=== PATIENT | female | born 1940 | race Hispanic/Latino ===

== ENCOUNTER 2017-01-06 14:11 | Inpatient (IN) | payer MEDICARE ==
[2017-01-06] MEDS ORDERED: CARDIZEM IV ONE (14:36)
--- NOTE | 2017-01-06 14:45 | Emergency Department Report ---
HPI - General Chief Complaint: Arrhythmia/Palpitations Time Seen by Provider: 01/06/17 14:35 - HPI HPI: This is a 76-year-old female presents to the emergency department by EMS from her PCP and cardiology office. The patient went to see her PCP, Dr. Rodney, for a preop clearance for upcoming cataract surgery. While she was there she had abnormal vitals and irregular rhythm and was told to go to see the assistant winemaker next door, Dr. Campos. While there the patient was found to be in atrial fibrillation with RVR and was sent by EMS to [facility] for further evaluation. The patient allegedly has a previous history of this one time in the past that was fixed with a ablation. She denies any chest pain, shortness of breath, nausea, vomiting or fever. She takes Eliquis and says she is compliant with this medication. ED Past Medical Hx - Past Medical History Previous Medical History?: Yes Hx Hypertension: Yes Hx Diabetes: Yes Hx Arthritis: Yes - Surgical History Past Surgical History?: Yes Hx Cholecystectomy: Yes Hx Appendectomy: Yes - Social History Smoking Status: Never Smoker Substance Use Type: None - Medications Home Medications: Home Medications Medication Instructions Recorded Confirmed Last Taken Type Metformin HCl [Glucophage] 1,000 mg PO BID 01/06/17 01/06/17 12/30/16 History Simvastatin [Zocor TAB] 20 mg PO QHS 01/06/17 01/06/17 12/30/16 History Warfarin Sodium [Coumadin] 3 mg PO QDAY 01/06/17 01/06/17 12/30/16 History glipiZIDE XL [Glucotrol Xl] 10 mg PO QAM 01/06/17 01/06/17 12/30/16 History ED Review of Systems ROS: Stated complaint: A FIB Other details as noted in HPI Comment: All other systems reviewed and negative Constitutional: denies: chills, fever Eyes: denies: eye pain, eye discharge, vision change ENT: denies: ear pain, throat pain Respiratory: denies: cough, shortness of breath, wheezing Cardiovascular: denies: chest pain, edema, syncope Gastrointestinal: denies: abdominal pain, nausea, diarrhea Genitourinary: denies: urgency, dysuria, discharge Musculoskeletal: denies: back pain, joint swelling, arthralgia Skin: denies: rash, lesions Neurological: denies: headache, weakness, paresthesias Physical Exam - Physical Exam Vital Signs: Vital Signs 01/06/17 14:20 Pulse Rate 160 H Respiratory 16 Rate O2 Sat by Pulse 97 Oximetry Physical Exam: GENERAL: The patient is well-developed well-nourished. HENT: Normocephalic. Atraumatic. Patient has moist mucous membranes. EYES: Extraocular motions are intact. Pupils equal, round and reactive to light. NECK: Supple. Trachea is midline. CHEST/LUNGS: Clear to auscultation. There is no respiratory distress noted. HEART/CARDIOVASCULAR: Irregularly irregular with tachycardia. No obvious murmurs. ABDOMEN: Abdomen is soft, nontender. Patient has normal bowel sounds. There is no abdominal distention. SKIN: Skin is warm and dry. NEURO: The patient is awake, alert, and oriented. The patient is cooperative. The patient has no focal neurologic deficits. The patient has normal speech. MUSCULOSKELETAL: There is no tenderness or deformity. There is no limitation range of motion. There is no evidence of acute injury. ED Course Vital Signs 01/06/17 14:20 Pulse Rate 160 H Respiratory 16 Rate O2 Sat by Pulse 97 Oximetry ED Medical Decision Making - Lab Data Result diagrams: 01/06/17 14:25 01/06/17 14:25 - EKG Data -: EKG Interpreted by Me - EKG Data Interpretation: other (atrial fibrillation with RVR, rate of 146 bpm, borderline left axis deviation, nonspecific ST-T waves) - Radiology Data Radiology results: image reviewed interpreted by me: Chest x-ray does not show any acute process. There is no obvious pneumonia, pleural effusions or pneumothorax. - Medical Decision Making 76-year-old female presents to the emergency department from PCP and cardiology and atrial fibrillation with RVR. Started on Cardizem drip which did help with rate control but the patient did not convert. Will be admitted to the ICU. Patient also has hyperglycemia but does not appear to be in DKA as there is no elevation in her anion gap. Given IV fluid resuscitation and IV insulin. She was seen in the emergency department by cardiology. - Differential Diagnosis atrial fibrillation with RVR, MT, DKA, HHN K Critical Care Time: Yes Critical care time in (mins) excluding proc time.: 31 Critical care attestation.: If time is entered above; I have spent that time in minutes in the direct care of this critically ill patient, excluding procedure time. Critical care time was spent on this patient and doing her initial evaluation, reevaluation, ordering and interpretation of labs, ordering and interpretation of imaging, medication administration and titration of Cardizem drip, discussion with the assistant winemaker and admitting hospitalist. Critical Care Time: 31 mins ED Disposition Clinical Impression: Atrial fibrillation with RVR, Hyperglycemia, Hyponatremia Uncontrolled diabetes mellitus Qualifiers: Diabetes mellitus type: type 1 Diabetes mellitus complication status: with hyperglycemia Qualified Code(s): E10.65 - Type 1 diabetes mellitus with hyperglycemia Disposition: DC-09 OP ADMIT IP TO THIS HOSP Is pt being admited?: Yes Condition: Fair Instructions: Diabetes Mellitus Type 2 in Adults (ED) Time of Disposition: 15:31
[2017-01-06 14:53] LABS: Eosinophils % (Auto) 0.6 % (0.0-4.3); Hematocrit 42.8 % (30.3-42.9); Hemoglobin 14.1 gm/dl (10.1-14.3); Mean Corpuscular HGB Conc 33 % (30-34); Mean Corpuscular Hemoglobin 29 pg (28-32); Mean Corpuscular Volume 88 fl (79-97); Platelet Count 213 K/mm3 (140-440); Red Blood Count 4.89 M/mm3 (3.65-5.03); Red Cell Distribution Width 14.8 % (13.2-15.2); White Blood Count 7.4 K/mm3 (4.5-11.0)
--- NOTE | 2017-01-06 14:55 | Admit Criteria Form ---
Admission Criteria Documentation: CARDIOLOGY GRG Clinical Indications for Admission to Inpatient Care ([place]/check or initial the applicable condition/criteria) Hospital admission is needed for appropriate care of the patient because of ANY ONE of the following: [ ] I. Hemodynamic instability as indicated by ALL of the following (1)(2)(3) (4)(5)(6)(7)(8)(9)(10) [ ]a) Vital sign abnormality not readily corrected by appropriate treatment with 12-24 hours for ANY ONE: [ ]i) Hypotension that persists despite appropriate treatment (eg, volume repletion) [ ]ii) Tachycardiathat persists despite appropriate tx ( e.g., analgesia, fluids, sedation as indicated [ ]iii) Orthostatic vital sign changes that persists despite appropriate treatment (eg, volume repletion) [ ]b) Vital sign abnormailty that is severe indicated by ANY ONE of the following: [ ]i) Inadequate perfusion indicated by ANY ONE of the following: [ ] 1) Lactic acidosis (> 2 mmol/L) [ ] 2) New abnormal capillary refill (> 3 seconds) [ ] 3) Reduced urine output [ ] 4) New altered mental status [ ] 5) Myocardial Ischemia [ ] 6) Other metabolic acidosis (arterial pH <7.35 ) not otherwise explained. [ ]ii) Mean arterial pressure[A] less than 60 mm Hg [ ]iii) Mean arterial pressure[A] less than 70 mm Hg after 30 minutes of appropriate treatment (eg, fluid resuscitation) [ ]iv) Sustained heart rate greater than 120 beats per minute in adult or child 6 years or older[B] [ ]v) IV inotropic or vasopressor medication required to maintain adequate blood pressure or perfusion [ ] II. Severe heart failure as indicated by ANY ONE of the following(17)(18) [ ]a) Respiratory distress [ ]b) Hypotension [ ]c) Debilitating anasarca refractory to therapy (eg, tissue breakdown with infection)[C](19) [ ]d) Cardiac arrhythmias of immediate concern [ ]e) Myocardial ischemia [ ] III. Cardiac arrhythmias or findings of immediate concern indicated by ANY ONE of the following (21)(22): [ ] a) Heart rhythms that are inherently dangerous or unstable indicated by ANY ONE of the following (23)(24)(25): [ ] i) Resuscitated ventricular fibrillation or cardiac arrest [ ] ii) Ventricular escape rhythm [ ] iii) Sustained ventricular tachycardia (30 seconds or more of ventricular rhythm at greater than 100 beats per minute) [ ] iv) Nonsustained ventricular tachycardia and ANY ONE of the following: [ ] 1) Suspected cardiac ischemia as cause or consequence of ventricular tachycardia [ ] 2) Acute myocarditis [ ] b) Unstable cardiac conduction defects indicated by ANY ONE of the following(25)(26)(27) [ ] i) Type II second-degree atrioventricular block [ ]ii) Third-degree atrioventricular block [ ]iii) New-onset left bundle branch block with suspected myocardial ischemia [ ]c) Any heart rhythm and ANY ONE of the following (23)(24)(28)(29) (30) [ ] i) Continuous long-term ECG monitoring needed (e.g., initiation of drug requiring monitoring for more than 24 hours) [ ] ii) Patient has automatic implanted cardioverter defibrillator that is repeatedly firing, malfunctioning, or in need of immediate adjustment of settings beyond the scope of ambulatory or observation care [ ]d) Heart rhythms of concern due to ANY ONE of the following: [ ] i) Hypotension [ ] ii) Respiratory distress [ ] iii) Association with other significant symptoms (e.g., bradycardia with syncope or ongoing dizziness, supraventricular tachycardia with chest pain (28)(29)(31) [ ] IV. Monitoring for cardiac contusion beyond the scope of observation care needed [A](32)(33)(34) [ ] V. Surgical or device complication (e.g., valve replacement complication , ICD disfunction or pacemaker dysfunction) (49)(50)(51)(52)(53)(54) [ ] . Inpatient palliative care needed. [F](51)(52) Also use Inpatient Palliative Care Criteria [ ] VII. Nonbacterial thrombotic (marantic) endocarditis(43)(44)(55)(56)(57) [X ] VIII. Cardiology condition, symptom, or finding for which emergency and observation care has failed or are not considered appropriate. [ ] IX. Acute valvular disease requiring inpatient as indicated by ANY ONE of the following (40)(41) [ ]a) Acute valvular regurgitation (42) [ ]b) Noninfectious valvulitis (43)(44) [ ]c) Obstructive valve thrombosis (45)(46) [ ]d) Paravalvular leak(47)(48) [ ]e) Other significant valvular disorder remaining after emergency or observation level of care (as appropriate) [ ]X. Pericardial disease requiring inpatient treatment as indicated by ANY ONE of the following (35)(36)(37)(38) [ ]a) Suspected tamponade [ ]b) Hemopericardium [ ]c) Other significant pericardial disorder remaining after emergency or observation level of care (as appropriate)(39) [ ] XI. Cardiac ischemia beyond scope of emergency and observation care. [ ] XII. Cyanotic heart disease requiring inpatient care as indicated by 1 or more of the following(58)(59)(60): [ ]a) Acute onset of hypoxemia [ ]b) Exacerbation [ ] XIII. Hypertension requiring inpatient treatment as indicated by ANYONE of the following(11)(12)(13)(14): [ ]a) Severe hypertension (SBP greater than 180 mm Hg or DBP greater than 110 mm Hg, or greater than the 95th percentile for age, gender, and height in pediatric patients) that cannot be controlled (eg, to SBP less than 160 mm Hg and DBP less than 100 mm Hg) by emergency department or observation care treatment(15) [ ]b) Acute end organ damage secondary to hypertension (SBP greater than 140 mm Hg or DBP greater than 90 mm Hg) as indicated by ANYONE of the following: [ ] i) Hypertensive encephalopathy (eg, Altered mental status)(16) [ ] ii) Cerebral infarction [ ] iii) Intracranial hemorrhage [ ] iv) Myocardial ischemia or infarction [ ] v) Heart failure (eg, pulmonary edema) [ ] vi) Aortic dissection [ ] vii) Increased creatinine (new) with reduction of more than 50% in estimated glomerular filtration rate from baseline [ ] viii) Papilledema [ ] ix) Retinal hemorrhage [ ] x) Microangiopathic hemolytic anemia [ ] xi) Seizure [ ] xii) Other significant finding secondary to hypertension [ ] XIV. Complications of transplanted heart indicated by ANY ONE of the following(61): [ ]a) Acute graft rejection requiring inpatient management (eg, intravenous imunosuppression)(62)(63) [ ]b) Acute graft heart failure indicated by ANY ONE of the following(64): [ ] i) Hemodynamic instability [ ] ii) Cardiac arrhythmias of immediate concern [ ] iii) Pulmonary edema that is very severe (eg, mechanical ventilation needed, imminent or likely, need for 100% oxygen to keep oxygen saturation above 90%) [ ] iv) Pulmonary edema that is persistent as indicated by ALL of the following: [ ] 1) New need for oxygen therapy to keep oxygen saturation above 90 % (or increased FiO2 need from baseline) [ ] 2) Has not improved sufficiently with emergency department or observation care IV diuretics or other heart failure treatments[E]. [ ] iv) Altered mental status that is severe or persistent [ ] iv) Increased creatinine (new on laboratory test) with reduction of more than 50% in estimated glomerular filtration rate from baseline [ ] iv) Progressively (ongoing) rising creatinine (known from past laboratory test) with reduction of more than 25% in estimated glomerular filtration rate from baseline [ ] iv) Acute renal failure [ ] iv) Acute peripheral ischemia (eg, examination shows pulseless, cool, mottled, or cyanotic extremity) [ ] iv) Pulmonary artery catheter monitoring needed [ ] iv) Other sign or symptom of heart failure requiring inpatient treatment (ie, too severe or not responsive to outpatient and observation care treatment) [ ]c) Infection requiring inpatient management (eg, Hemodynamic instability, need for intravenous antimicrobial treatment)(66)(67)(68)(69)(70) [ ]d) Cardiac allograft vasculopathy requiring inpatient management (eg evidence of cardiacischemia)(71) [ ]e) Other complication of transplanted heart (eg, stroke, severe pulmonary hypertension, severe valvular dysfunction) requiring inpatient management(72) The original [employer] content created by [employer] has been revised. The portions of the content which have been revised are identified through the use of italic text or in bold, and [facility] has neither reviewed nor approved the modified material. All other unmodified content is copyright [facility]. Please see references footnoted in the original [facility] edition 2017 Admission Criteria Met: Yes
--- NOTE | 2017-01-06 14:55 | XRay Report ---
PORTABLE CHEST INDICATION: Chest pain. COMPARISON: None similar at this institution. FINDINGS: Portable, frontal chest radiograph demonstrates slight limited inspiration and mild exaggerated cardiomediastinal silhouette/possible cardiomegaly. Slight nonspecific left lateral costophrenic angle haziness. Otherwise clear lungs. EKG leads. Intact bones. CONCLUSION: No definite significant chest process, as described. Please correlate. Thank you for the opportunity to participate in this patient's care.
[2017-01-06] MEDS: CARDIZEM/D5W 100MG/100ML 100 MG/100 ML BAG IV ONE (15:00)
[2017-01-06 15:02] LABS: INR 0.95 (0.87-1.13); Partial Thromboplastin Time 28.4 Sec. (24.2-36.6)
[2017-01-06 15:10] LABS: Anion Gap 23 mmol/L; BUN/Creatinine Ratio 21.66; Blood Urea Nitrogen 13 mg/dL (7-17); Calcium 9.3 mg/dL (8.4-10.2); Carbon Dioxide 19 mmol/L (22-30); Chloride 94.4 mmol/L (98-107); Glucose 450 mg/dL (65-100); Potassium 4.1 mmol/L (3.6-5.0); Sodium 132 mmol/L (137-145)
--- NOTE | 2017-01-06 15:17 | Consultation ---
History of Present Illness Consult date: 01/06/17 Requesting physician: HOOD [place] Consult reason: atrial fibrillation History of present illness: The pt is a 76-year-old white female with a past medical history significant for chronic back issues, atrial flutter s/p ablation 10 years ago, DM, HTN, and HLP. She is followed in our office by Dr. Campos. She was last seen 18 months ago in our office and she has since stopped her beta lindsey and coumadin on her own. She presented to her PCP for preop for eye surgery and was found to be in atrial flutter with variable ventricular response and was sent to the underwriting consultant's office. In our office, she was found to be in AFib with HR 150s. She was referred to [facility] ED for further eval/management. On evaluation, she denies any chest pain, palpitations, n/v, diaphoresis, dizziness or syncope. She does admit to some RESTREPO, which has been present for several months. Echo done 02/2016 showed EF 55-60%, mild to moderate LVH, mild MR, trace TR, RVSP 24mmHg. PET MPI done 07/2014 was negative for significant ischemia, coronary flow reserve globally diminished at 1.5 suggestive of endothelial dysfunction or nonobstructive CAD. Past History Past Medical History: atrial fib, diabetes, hypertension, hyperlipidemia Past Surgical History: appendectomy, cholecystectomy, Other (ablation; carpel tunnel surgery) Social history: no significant social history. denies: smoking, alcohol abuse, prescription drug abuse Medications and Allergies Allergies Allergy/AdvReac Type Severity Reaction Status Date / Time No Known Allergies Allergy Verified 01/06/17 14:16 Home Medications Medication Instructions Recorded Confirmed Last Taken Type Metformin HCl [Glucophage] 1,000 mg PO BID 01/06/17 01/06/17 12/30/16 History Simvastatin [Zocor TAB] 20 mg PO QHS 01/06/17 01/06/17 12/30/16 History Warfarin Sodium [Coumadin] 3 mg PO QDAY 01/06/17 01/06/17 12/30/16 History glipiZIDE XL [Glucotrol Xl] 10 mg PO QAM 01/06/17 01/06/17 12/30/16 History Active Meds: Active Medications Diltiazem HCl (Cardizem/D5w 100mg/100ml) 100 mg in 100 mls @ 5 mls/hr IV TITR ONE; 5 MG/HR PRN Reason: Protocol Stop: 01/07/17 10:35 Last Admin: 01/06/17 15:00 Dose: 5 mg/hr, 5 mls/hr Review of Systems Constitutional: no weight loss, no weight gain, no fever, no chills, no sweats Ears, nose, mouth and throat: no ear pain, no nose pain, no sinus pressure, no sinus pain Cardiovascular: dyspnea on exertion, no chest pain, no orthopnea, no palpitations, no rapid/irregular heart beat, no edema, no syncope, no lightheadedness, no shortness of breath, no paroxysmal nocturnal dyspnea, no high blood pressure, no leg edema, no decreased exercise tolerance Respiratory: dyspnea on exertion, no cough, no shortness of breath, no congestion, no wheezing, no pain on inspiration Gastrointestinal: no abdominal pain, no nausea, no vomiting, no diarrhea, no constipation, no change in bowel habits Genitourinary Female: no dyspareunia, no pelvic pain, no flank pain, no dysuria , no urinary frequency, no urgency Musculoskeletal: no neck stiffness, no neck pain, no shooting arm pain, no arm numbness/tingling, no low back pain, no shooting leg pain, no leg numbness/ tingling, no redness of joints Integumentary: no rash, no pruritis, no redness, no sores, no wounds Neurological: no paralysis, no weakness, no parathesias, no numbness, no tingling, no seizures, no syncope Psychiatric: no anxiety Endocrine: no cold intolerance, no heat intolerance Hematologic/Lymphatic: no easy bruising, no easy bleeding, no lymphadenopathy Allergic/Immunologic: no urticaria, no wheezing, no persistent infections Physical Examination Vital Signs Pulse Resp Pulse Ox 160 H 16 97 01/06/17 14:20 01/06/17 14:20 01/06/17 14:20 General appearance: no acute distress HEENT: Positive: PERRL, Normocephaly, Mucus Membranes Moist Neck: Positive: neck supple, trachea midline Cardiac: Positive: irregularly irregular, S1/S2, Tachycardia Lungs: Positive: Normal Exam, clear to auscultation, Normal Breath Sounds Neuro: Positive: Grossly Intact, Cranial Nerve 2-12 Intact Abdomen: Positive: Unremarkable, Soft, Active Bowel Sounds. Negative: Tender Skin: Positive: Clear. Negative: Rash, Wound Musculoskeletal: No Fluid Collection, No Pain, Normal Range of Motion Extremities: Absent: edema Results 01/06/17 14:25 Coagulation 01/06/17 Range/Units 14:25 PT 13.1 (12.2-14.9) Sec. INR 0.95 (0.87-1.13) APTT 28.4 (24.2-36.6) Sec. CBC 01/06/17 Range/Units 14:25 WBC 7.4 (4.5-11.0) K/mm3 RBC 4.89 (3.65-5.03) M/mm3 Hgb 14.1 (10.1-14.3) gm/dl Hct 42.8 (30.3-42.9) % Plt Count 213 (140-440) K/mm3 Lymph # 1.7 (1.2-5.4) K/mm3 Gibson # 0.5 (0.0-0.8) K/mm3 Eos # 0.0 (0.0-0.4) K/mm3 Baso # 0.1 (0.0-0.1) K/mm3 - Imaging and Cardiology Echo: report reviewed (02/2016 showed EF 55-60%, mild to moderate LVH, mild MR, trace TR, RVSP 24mmHg.) EKG: image reviewed EKG interpretations - Telemetry EKG Rhythm: Atrial Fibrillation - EKG Supraventricular dysrhythmia: atrial fibrillation (RVR) Assessment and Plan Assessment: Atrial fibrillation with RVR - s/p ablation 10 years ago HTN HLP DM Plan: Continue cardizem gtt. Wean off for resting HR <100bpm. Initiate lopressor, 25mg PO TID. Titrate as tolerated. No indication for repeat echo at this time given recent echo 02/2016. Obtain serum Mg. Obtain thyroid panel in AM. Initiate eliquis, 5mg PO BID. Assessment and plan reviewed with pt at bedside. The patient has been seen in conjunction with Dr. SHEILA Davila who agrees with the assessment and plan of care.
[2017-01-06] MEDS ORDERED: LOPRESSOR PO SCH (15:21)
--- NOTE | 2017-01-06 15:35 | History and Physical Report ---
History of Present Illness Chief complaint: My heart is beating fast- thats what the doctor told me. History of present illness: 76 YO Female with Atrial flutter, DM, HTN, HLD, Metabolic Syndrome presents to ED for evaluation. Pt was seen and evaluated in Dr. Campos's office and was found to have Atrial Flutter with RVR and was sent to ED for evaluation. Pt denies fever, chills, CP, Palpitations, NVD, syncope, dizziness, weakness, NVD, productive cough, or known ill contacts. Past History Past Medical History: atrial fib, diabetes, hypertension, hyperlipidemia Past Surgical History: appendectomy, cholecystectomy, Other (ablation; carpel tunnel surgery) Social history: no significant social history. denies: smoking, alcohol abuse, prescription drug abuse Medications and Allergies Allergies Allergy/AdvReac Type Severity Reaction Status Date / Time No Known Allergies Allergy Verified 01/06/17 14:16 Home Medications Medication Instructions Recorded Confirmed Last Taken Type Metformin HCl [Glucophage] 1,000 mg PO BID 01/06/17 01/06/17 12/30/16 History Simvastatin [Zocor TAB] 20 mg PO QHS 01/06/17 01/06/17 12/30/16 History Warfarin Sodium [Coumadin] 3 mg PO QDAY 01/06/17 01/06/17 12/30/16 History glipiZIDE XL [Glucotrol Xl] 10 mg PO QAM 01/06/17 01/06/17 12/30/16 History Active Meds: Active Medications Apixaban (Eliquis) 5 mg PO Q12HR ABHIJIT PRN Reason: Protocol Diltiazem HCl (Cardizem/D5w 100mg/100ml) 100 mg in 100 mls @ 5 mls/hr IV TITR ONE; 5 MG/HR PRN Reason: Protocol Stop: 01/07/17 10:35 Last Titration: 01/06/17 15:17 Dose: 7 mg/hr, 7 mls/hr Metoprolol Tartrate (Lopressor) 25 mg PO TID ABHIJIT Review of Systems Constitutional: no weight loss, no weight gain Ears, nose, mouth and throat: no ear pain, no nose pain, no sinus pain Cardiovascular: no chest pain, no orthopnea, no palpitations Respiratory: cough with sputum, no cough Gastrointestinal: no abdominal pain, no nausea, no diarrhea Genitourinary Female: no dysuria, no urinary frequency, no urgency Rectal: no pain, no bleeding Musculoskeletal: no neck pain, no arm numbness/tingling, no shooting leg pain Integumentary: no rash, no wounds Neurological: no head injury, no parathesias, no numbness Psychiatric: no anxiety, no hypersomnia Endocrine: no cold intolerance, no polyphagia, no polydipsia Hematologic/Lymphatic: no easy bruising, no easy bleeding Allergic/Immunologic: allergic rhinitis, no persistent infections Exam - Constitutional Vitals: Temp Pulse Resp BP Pulse Ox 114 H 18 119/66 100 01/06/17 15:16 01/06/17 15:16 01/06/17 15:16 01/06/17 15:16 General appearance: Present: mild distress - EENT Eyes: Present: PERRL ENT: hearing intact, clear oral mucosa, poor dentition - Neck Neck: Present: supple, normal ROM - Respiratory Respiratory effort: normal Respiratory: bilateral: CTA - Cardiovascular Rhythm: irregularly irregular Heart Sounds: Absent: rub, click - Extremities Extremities: pulses symmetrical, No edema Peripheral Pulses: within normal limits - Abdominal General gastrointestinal: Present: soft, non-tender, non-distended, normal bowel sounds Female genitourinary: Present: normal - Integumentary Integumentary: Present: clear, warm, dry - Musculoskeletal Musculoskeletal: gait normal, strength equal bilaterally - Psychiatric Psychiatric: appropriate mood/affect, intact judgment & insight - Neurologic Neurologic: CNII-XII intact, moves all extremities Results - Labs CBC & Chem 7: 01/06/17 14:25 01/06/17 14:25 Labs: Abnormal lab results 01/06/17 Range/Units 14:25 Sodium 132 L (137-145) mmol/L Chloride 94.4 L (98-107) mmol/L Carbon Dioxide 19 L (22-30) mmol/L Creatinine 0.6 L (0.7-1.2) mg/dL Glucose 450 H (65-100) mg/dL Assessment and Plan - Patient Problems (1) Atrial fibrillation with RVR Current Visit: Yes Status: Acute Plan to address problem: Cardiology consulted in ED, initiated cardizem drip, therapeutic anticoagulation , rate control,, supportive care. The high probability of a clinically significant, sudden or life threatening deterioration of the [cardiac, pulmonary,renal] system(s) required my full and direct attention, intervention and personal management. The aggregate critical care time was [65] minutes. This time is in addition to time spent performing reported procedures but includes the following: [x] Data Review and interpretation [x] Patient assessment and monitoring of vital signs [x] Documentation [x] Medication orders and management (2) Hyponatremia Current Visit: Yes Status: Acute Plan to address problem: IVR resuscitation, supportive care (3) Uncontrolled diabetes mellitus Current Visit: Yes Status: Acute Qualifiers: Diabetes mellitus type: type 1 Diabetes mellitus complication status: with hyperglycemia Diabetes mellitus complication detail: D Diabetic retinopathy severity: D Proliferative retinopathy type: P Diabetes mellitus macular edema: D Diabetes mellitus mosaic tiler insulin use: D Laterality: L Chronic kidney disease stage: C Qualified Code(s): E10.65 - Type 1 diabetes mellitus with hyperglycemia Plan to address problem: ADA diet, insulin, accu check (4) DVT prophylaxis Current Visit: Yes Status: Acute
[2017-01-06] MEDS ORDERED: MILK OF MAGNESIA PO PRN (15:47)
[2017-01-06] MEDS ORDERED: DULCOLAX PR PRN (15:47)
[2017-01-06] MEDS ORDERED: ALUM-MAG HYDROX-SIMETH 200-200-20MG/5ML PO PRN (15:47)
[2017-01-06] MEDS ORDERED: D50W (25GM) Syringe IV PRN (15:54)
[2017-01-06] MEDS ORDERED: LOPRESSOR ONE ×2 (15:56→23:07)
[2017-01-06] MEDS: LOPRESSOR PO SCH ×2 (16:03→23:17)
[2017-01-06] MEDS ORDERED: NOVOLOG SUB-Q ONE (19:02)
[2017-01-06] MEDS: NOVOLOG SUB-Q SCH (19:06)
[2017-01-06] MEDS ORDERED: ZOCOR ONE (23:07)
[2017-01-06] MEDS ORDERED: CARDIZEM/D5W 100MG/100ML 100 MG/100 ML BAG IV ONE (23:19)
[2017-01-06] MEDS: ZOCOR PO SCH (23:25)
[2017-01-06] MEDS: ELIQUIS PO SCH (23:25)
[2017-01-06] MEDS ORDERED: NACL 0.9% 1000 ML 1,000 ML ONE (23:49)
[2017-01-07] MEDS: CARDIZEM/D5W 100MG/100ML 100 MG/100 ML BAG IV ONE
[2017-01-07] MEDS: NOVOLOG SUB-Q SCH ×4 (00:58→18:46)
[2017-01-07] MEDS: LOPRESSOR PO SCH ×3 (09:00→20:34)
[2017-01-07] MEDS ORDERED: MAGNESIUM SULFATE 1 GM in NACL 0.9% 50 ML IV ONE (09:15)
[2017-01-07] MEDS ORDERED: NON-FORMULARY (Warfarin Sodium [Coumadin] 3 MG) PO SCH (10:00)
[2017-01-07] MEDS: ELIQUIS PO SCH ×2 (10:19→22:09)
--- NOTE | 2017-01-07 12:11 | Progress Note ---
Assessment and Plan Atrial fibrillation with RVR - s/p ablation 10 years ago. Patient has been treated with intravenous Cardizem and currently the Cardizem drip is off. She is on metoprolol converted to sinus rhythm. Patient is on oral anticoagulation. HTN HLP DM Plan: Plan is to transfer the patient to telemetry continue monitoring and increase her activity. If she remains stable patient can be discharged in a.m. - Patient Problems (1) Atrial fibrillation with RVR Current Visit: Yes Status: Acute (2) Hypertension Current Visit: Yes Status: Acute Qualifiers: Hypertension type: H Subjective Date of service: 01/07/17 Interval history: Patient is feeling well today. No chest pain difficulty in breathing or palpitations. Heart rate has improved and now she is in sinus rhythm. Objective Vital Signs Temp Pulse Pulse Pulse Resp BP BP 01/07/17 12:00 97.6 F 01/07/17 11:40 65 14 127/46 01/07/17 11:20 67 11 L 126/50 01/07/17 11:00 68 13 126/50 01/07/17 10:40 65 14 122/52 01/07/17 10:20 69 12 119/49 01/07/17 10:00 73 73 19 110/64 01/07/17 09:40 68 15 101/50 01/07/17 09:20 80 13 101/50 01/07/17 09:00 68 13 101/50 01/07/17 08:40 76 16 112/41 01/07/17 08:20 65 13 112/41 01/07/17 08:19 97.5 F L 01/07/17 08:00 67 67 14 112/41 01/07/17 07:40 68 15 102/39 01/07/17 07:20 68 14 91/31 01/07/17 07:00 69 14 91/31 01/07/17 06:40 67 13 101/40 01/07/17 06:20 63 14 101/40 01/07/17 06:00 65 64 13 101/40 01/07/17 05:40 64 15 101/33 01/07/17 05:20 64 13 101/33 01/07/17 05:00 67 13 101/33 01/07/17 04:40 66 14 111/35 01/07/17 04:20 67 14 111/35 01/07/17 04:00 97.8 F 65 15 111/35 01/07/17 03:40 64 13 109/64 01/07/17 03:20 67 15 109/64 01/07/17 03:00 64 16 109/64 01/07/17 02:40 64 15 114/48 01/07/17 02:27 69 16 01/07/17 02:00 90 74 18 104/66 01/07/17 01:40 86 19 104/66 01/07/17 01:37 97.8 F 01/07/17 01:30 14 114/48 01/07/17 01:26 01/07/17 01:13 97.8 F 01/07/17 01:05 107 H 14 116/68 01/07/17 00:50 113 H 14 116/68 01/07/17 00:40 103 H 14 77/65 01/07/17 00:30 109 H 16 81/60 01/07/17 00:20 94 H 10 L 76/67 01/07/17 00:18 100 H 15 76/67 01/07/17 00:10 102 H 17 76/67 01/07/17 00:00 112 H 17 76/67 01/06/17 23:50 103 H 13 76/67 01/06/17 23:48 115 H 15 82/67 01/06/17 23:40 134 H 17 76/67 01/06/17 23:30 124 H 17 92/67 01/06/17 23:20 129 H 14 92/67 01/06/17 23:17 76 92/67 01/06/17 23:10 124 H 15 78/43 01/06/17 23:00 100 H 17 78/43 01/06/17 22:50 110 H 14 84/43 01/06/17 22:40 121 H 12 94/43 01/06/17 22:30 102 H 17 94/43 01/06/17 22:20 95 H 18 87/50 01/06/17 22:10 126 H 17 88/58 01/06/17 22:00 122 H 13 82/45 01/06/17 21:50 109 H 18 100/49 01/06/17 21:40 103 H 18 91/56 01/06/17 21:30 102 H 15 91/56 01/06/17 21:20 89 16 97/59 01/06/17 21:10 85 17 100/52 01/06/17 21:00 78 16 100/52 01/06/17 20:50 100 H 16 103/62 01/06/17 20:40 96 H 19 97/59 01/06/17 20:30 133 H 17 97/59 01/06/17 20:20 95 H 17 94/62 01/06/17 20:10 101 H 16 99/50 01/06/17 20:00 122 H 19 99/50 01/06/17 19:50 142 H 15 111/66 01/06/17 19:40 104 H 18 90/63 01/06/17 19:30 117 H 17 98/61 01/06/17 19:20 132 H 21 100/71 01/06/17 19:10 102 H 18 99/60 01/06/17 19:00 87 23 101/48 01/06/17 18:50 87 14 101/48 01/06/17 18:40 102 H 18 114/51 01/06/17 18:30 108 H 16 114/51 01/06/17 18:20 89 15 117/51 01/06/17 18:10 90 17 108/53 01/06/17 18:00 88 17 108/53 01/06/17 17:50 91 H 16 114/45 01/06/17 17:40 96 H 20 110/54 01/06/17 17:30 97 H 18 110/54 01/06/17 17:20 104 H 19 100/63 01/06/17 17:10 114 H 18 110/64 01/06/17 17:00 103 H 18 110/64 01/06/17 16:50 108 H 20 119/48 01/06/17 16:40 114 H 19 102/60 01/06/17 16:30 144 H 17 102/60 01/06/17 16:20 146 H 20 117/64 01/06/17 16:13 16 01/06/17 16:10 127 H 23 113/74 01/06/17 16:03 101 H 128/52 01/06/17 16:00 132 H 17 113/74 01/06/17 15:50 130 H 21 103/67 Pulse Ox 01/07/17 12:00 01/07/17 11:40 96 01/07/17 11:20 98 01/07/17 11:00 98 01/07/17 10:40 97 01/07/17 10:20 99 01/07/17 10:00 97 01/07/17 09:40 95 01/07/17 09:20 99 01/07/17 09:00 98 01/07/17 08:40 98 01/07/17 08:20 96 01/07/17 08:19 01/07/17 08:00 96 01/07/17 07:40 96 01/07/17 07:20 96 01/07/17 07:00 97 01/07/17 06:40 98 01/07/17 06:20 96 01/07/17 06:00 97 01/07/17 05:40 96 01/07/17 05:20 96 01/07/17 05:00 98 01/07/17 04:40 96 01/07/17 04:20 96 01/07/17 04:00 94 01/07/17 03:40 95 01/07/17 03:20 95 01/07/17 03:00 96 01/07/17 02:40 97 01/07/17 02:27 97 01/07/17 02:00 96 01/07/17 01:40 99 01/07/17 01:37 01/07/17 01:30 100 01/07/17 01:26 98 01/07/17 01:13 01/07/17 01:05 99 01/07/17 00:50 95 01/07/17 00:40 96 01/07/17 00:30 01/07/17 00:20 96 01/07/17 00:18 96 01/07/17 00:10 95 01/07/17 00:00 96 01/06/17 23:50 96 17 23:48 96 17 23:40 96 17 23:30 95 17 23:20 95 1817 23:17 17 23:10 96 1817 23:00 95 1817 22:50 98 17 22:40 94 17 22:30 96 17 22:20 95 01/06/17 22:10 97 01/06/17 22:00 97 01/06/17 21:50 96 01/06/17 21:40 96 01/06/17 21:30 96 01/06/17 21:20 96 01/06/17 21:10 94 01/06/17 21:00 94 01/06/17 20:50 95 01/06/17 20:40 97 01/06/17 20:30 95 01/06/17 20:20 95 01/06/17 20:10 94 01/06/17 20:00 95 01/06/17 19:50 96 01/06/17 19:40 96 01/06/17 19:30 94 01/06/17 19:20 95 01/06/17 19:10 96 01/06/17 19:00 97 01/06/17 18:50 99 01/06/17 18:40 97 01/06/17 18:30 95 01/06/17 18:20 97 01/06/17 18:10 96 01/06/17 18:00 96 01/06/17 17:50 97 01/06/17 17:40 94 01/06/17 17:30 93 01/06/17 17:20 93 01/06/17 17:10 93 01/06/17 17:00 93 01/06/17 16:50 93 01/06/17 16:40 98 01/06/17 16:30 96 01/06/17 16:20 95 01/06/17 16:13 01/06/17 16:10 97 01/06/17 16:03 01/06/17 16:00 94 01/06/17 15:50 95 - Physical Examination General: Appears Well HEENT: Positive: PERRL, Normocephaly, Mucus Membranes Moist Neck: Positive: neck supple, trachea midline Cardiac: Positive: Reg Rate and Rhythm Lungs: Positive: clear to auscultation Neuro: Positive: Grossly Intact, Cranial Nerve 2-12 Intact Abdomen: Positive: Unremarkable, Soft, Active Bowel Sounds. Negative: Tender Skin: Positive: Clear. Negative: Rash, Wound Musculoskeletal: No Fluid Collection, No Pain, Normal Range of Motion Extremities: Present: Other (no significant edema or calf tenderness.). Absent : edema - Imaging and Cardiology EKG: image reviewed Echo: report reviewed (02/2016 showed EF 55-60%, mild to moderate LVH, mild MR, trace TR, RVSP 24mmHg.)
--- NOTE | 2017-01-07 14:30 | Consultation ---
History of Present Illness Consult date: 01/07/17 Requesting physician: REJI MIRAMONTES Reason for consult: other (Atrial Fib with RVR) History of present illness: PULMONARY/CCM CONSULT NOTE (Full dictation # [id number]) Please see dictated notes for full details Past History Past Medical History: atrial fib, diabetes, hypertension, hyperlipidemia Past Surgical History: appendectomy, cholecystectomy, Other (ablation; carpel tunnel surgery) Social history: no significant social history. denies: smoking, alcohol abuse, prescription drug abuse Medications and Allergies Allergies Allergy/AdvReac Type Severity Reaction Status Date / Time No Known Allergies Allergy Verified 01/06/17 14:16 Home Medications Medication Instructions Recorded Confirmed Last Taken Type Metformin HCl [Glucophage] 1,000 mg PO BID 01/06/17 01/06/17 12/30/16 History Simvastatin [Zocor TAB] 20 mg PO QHS 01/06/17 01/06/17 12/30/16 History Warfarin Sodium [Coumadin] 3 mg PO QDAY 01/06/17 01/06/17 12/30/16 History glipiZIDE XL [Glucotrol Xl] 10 mg PO QAM 01/06/17 01/06/17 12/30/16 History Active Meds: Active Medications Al Hydrox/Mg Hydrox/Simethicone (Alum-Mag Hydrox-Simeth [id number]/5ml) 30 ml PO Q4H PRN PRN Reason: Indigestion Apixaban (Eliquis) 5 mg PO Q12HR ABHIJIT PRN Reason: Protocol Last Admin: 01/07/17 10:19 Dose: 5 mg Bisacodyl (Dulcolax) 10 mg [place] QDAY PRN PRN Reason: constipation unrelieved by MOM Dextrose (D50w (25gm)) 50 ml IV PRN PRN PRN Reason: Hypoglycemia Insulin Aspart (Novolog) 0 units SUB-Q Q6HR ABHIJIT PRN Reason: Protocol Last Admin: 01/07/17 07:20 Dose: 8 units Insulin Detemir (Levemir) 10 units SUB-Q QAMDIAB [facility] Magnesium Hydroxide (Milk Of Magnesia) 30 ml PO Q4H PRN PRN Reason: Constipation Metoprolol Tartrate (Lopressor) 25 mg PO TID [facility] Last Admin: 01/07/17 09:00 Dose: Not Given Simvastatin (Zocor) 20 mg PO QHS ABHIJIT Last Admin: 01/06/17 23:25 Dose: 20 mg Physical Examination Vital signs: Vital Signs Pulse Resp Pulse Ox 160 H 16 97 01/06/17 14:20 01/06/17 14:20 01/06/17 14:20 Results - Laboratory Findings CBC and BMP: 01/06/17 14:25 01/06/17 14:25 PT/INR, D-dimer PT 13.1 Sec. (12.2-14.9) 01/06/17 14:25 INR 0.95 (0.87-1.13) 01/06/17 14:25 Abnormal lab findings: Abnormal Labs 01/06/17 01/07/17 01/07/17 18:54 00:41 05:33 POC Glucose 193 H 180 H 335 H 01/07/17 11:14 POC Glucose 158 H
--- NOTE | 2017-01-07 20:46 | Progress Note ---
Assessment and Plan Assessment and plan: 1. A. Flutter with RVR Admitted to ICU Started on Cardizem drip which is now off as she converted back to sinus rhythm On beta lindsey and anticoagulated with Elquis 2. Hypertension BP within normal limits while on Cardizem drip; now started on metoprolol Monitor and adjust regimen as needed 3. Uncontrolled diabetes Long-acting insulin along with SSI to assess insulin requirements Diabetic diet 4. Hyponatremia Likely pseudohyponatremia due to hyperglycemia Monitor 5. Hyperlipidemia Statin 6. DVT prophylaxis Anticoagulated with Eliquis History Interval history: cardizem dripp off, converted to NSR Hospitalist Physical - Constitutional Vitals: Temp Pulse Resp BP Pulse Ox 98.4 F 75 20 122/58 96 01/07/17 19:48 01/07/17 20:34 01/07/17 19:48 01/07/17 20:34 01/07/17 20:35 General appearance: Present: mild distress Results - Labs CBC & Chem 7: 01/06/17 14:25 01/08/17 07:00 Labs: Laboratory Last Values WBC 7.4 K/mm3 (4.5-11.0) 01/06/17 14:25 RBC 4.89 M/mm3 (3.65-5.03) 01/06/17 14:25 Hgb 14.1 gm/dl (10.1-14.3) 01/06/17 14:25 Hct 42.8 % (30.3-42.9) 01/06/17 14:25 MCV 88 fl (79-97) 01/06/17 14:25 MCH 29 pg (28-32) 01/06/17 14:25 MCHC 33 % (30-34) 01/06/17 14:25 RDW 14.8 % (13.2-15.2) 01/06/17 14:25 Plt Count 213 K/mm3 (140-440) 01/06/17 14:25 Lymph % (Auto) 22.7 % (13.4-35.0) 01/06/17 14:25 [facility] % (Auto) 6.1 % (0.0-7.3) 01/06/17 14:25 Eos % (Auto) 0.6 % (0.0-4.3) 01/06/17 14:25 Baso % (Auto) 1.0 % (0.0-1.8) 01/06/17 14:25 Lymph # 1.7 K/mm3 (1.2-5.4) 01/06/17 14:25 [facility] [place] [facility] # 0.5 K/mm3 (0.0-0.8) 01/06/17 14:25 Eos # 0.0 K/mm3 (0.0-0.4) 01/06/17 14:25 Baso # 0.1 K/mm3 (0.0-0.1) 01/06/17 14:25 Seg Neutrophils % 69.6 % (40.0-70.0) 01/06/17 14:25 Seg Neutrophils # 5.2 K/mm3 (1.8-7.7) 01/06/17 14:25 PT 13.1 Sec. (12.2-14.9) 01/06/17 14:25 INR 0.95 (0.87-1.13) 01/06/17 14:25 APTT 28.4 Sec. (24.2-36.6) 01/06/17 14:25 VBG pH 7.352 (7.320-7.420) 01/06/17 15:31 Sodium 132 mmol/L (137-145) L 01/06/17 14:25 Potassium 4.1 mmol/L (3.6-5.0) 01/06/17 14:25 Chloride 94.4 mmol/L (98-107) L 01/06/17 14:25 Carbon Dioxide 19 mmol/L (22-30) L 01/06/17 14:25 Anion Gap 23 mmol/L 01/06/17 14:25 BUN 13 mg/dL (7-17) 01/06/17 14:25 Creatinine 0.6 mg/dL (0.7-1.2) L 01/06/17 14:25 Estimated GFR > 60 ml/min 01/06/17 14:25 BUN/Creatinine Ratio 21.66 % 01/06/17 14:25 Glucose 450 mg/dL (65-100) H 01/06/17 14:25 POC Glucose 158 (70-105) H 01/07/17 11:14 Hemoglobin A1c 10.6 % (4-6) H 01/06/17 14:25 Calcium 9.3 mg/dL (8.4-10.2) 01/06/17 14:25 Magnesium 1.30 mg/dL (1.7-2.3) L 01/06/17 14:25 Troponin T < 0.010 ng/mL (0.00-0.029) 01/06/17 22:06
[2017-01-07] MEDS: ZOCOR PO SCH (22:09)
[2017-01-08] MEDS: NOVOLOG SUB-Q SCH ×5 (00:35→19:22)
--- NOTE | 2017-01-08 01:06 | Consultation ---
PULMONARY CRITICAL CARE EVALUATION NOTE CONSULTING PHYSICIAN: Dr. Mccormack. REASON FOR CONSULTATION: Atrial fibrillation with rapid ventricular respond, need for IV Cardizem drip. CHIEF COMPLAINT AND HISTORY OF PRESENT ILLNESS: The patient is a 76-year-old female with past medical history significant only for chronic back issues, but apparently also history of atrial flutter, status post ablation 10 years ago, seen by Dr. Campos the packaging assembler. She apparently was last seen about 18 months ago in the office. She went to her primary care physician as part of preoperative evaluation for cataract surgery. EKG was done and she was found to be in atrial flutter with variable ventricular response. She was ____ to, I believe to the Emergency Room. She denied any chest pain. She denied any palpitations. Occasionally, she sees some whitish lights whenever she changes positions, but never thought anything about it. She denies any dizziness or syncope, mild dyspnea on exertion. She was evaluated in the ER and admitted to the Intensive Care Unit for IV Cardizem administration, hence the consult; however, she has done pretty well since being in the intensive care unit. By the time I stopped by to see her, actually she had been transferred to the telemetry floor and she was back in a sinus rhythm. She denied any chest pains, fevers, or chills. She denies any history of tobacco use or abuse whatsoever. That really is as much of the history of presentation as I have. PAST MEDICAL HISTORY: Again, history of atrial flutter, status post ablation 10 years ago, chronic back pain, diabetes, hypertension, hyperlipidemia. She is obese. PAST SURGICAL HISTORY: She has had an appendectomy, cholecystectomy, and carpal tunnel surgery. MEDICATIONS: She was on at the time I stopped by to see her, according to the medication administration record included the following: Eliquis 5 mg p.o. q.12h., p.r.n. Dulcolax, insulin via sliding scale, Levemir insulin 10 units subcutaneous q.a.m., metoprolol 25 mg p.o. t.i.d., p.r.n. milk of magnesia, and Zocor 20 mg p.o. at bedtime. ALLERGIES: No known drug allergies. DIET: Obese lady, denies acute weight loss or gain in preceding few weeks to months. FAMILY AND SOCIAL HISTORY: Lives in the community. She denies alcohol, tobacco, or illicit drug use or abuse. REVIEW OF SYSTEMS: No loss of consciousness. No new onset seizures. No new onset focal weakness. No gross hematochezia or melena. No gross hematuria or dysuria. No hematemesis. No hemoptysis. No palpitations. Complete 14-system review of systems obtained. Pertinent positives and/or negatives as in body of history above, otherwise they are noncontributory. PHYSICAL EXAMINATION: VITAL SIGNS: At presentation in the emergency room, she was afebrile on the first temperature I have 97.8 with a pulse of 107, respiratory rate of 14, blood pressure 116/68. Oxygen sats were 99%, inspired oxygen concentration was not recorded. HEAD, EYES, EARS, NOSE, AND THROAT: Pupils are equal, round, about 3-4 mm, reactive to light. Extraocular muscle movements are intact. Oropharynx is a Mallampati #3 oropharynx with mild oropharyngeal pallor, grossly no palpable lymph nodes in the supraclavicular or submandibular lymph node chains. No jugular venous distention. LUNGS: Auscultation of both lung fowler, diminished bilateral breath sounds, but clear. HEART: Heart sounds 1 and 2 are heard at the time of my evaluation, regular rate and rhythm. ABDOMEN: Soft, full, bowel sounds are positive, nontender. EXTREMITIES: Without overt digital clubbing, cyanosis, or pedal edema. NEUROLOGIC: The exam was grossly nonfocal. LABORATORY DATA: From my review are as follows: Admission white cell count 7400 with a hemoglobin of 14.1, hematocrit of 42.8, platelet count of 213. INR was 0.95. Venous blood gas showed a pH of 7.35. Serum sodium was 132, potassium 4.1, chloride 94, bicarbonate 19, BUN 13, creatinine 0.6, glucose was 450. Hemoglobin A1c was 10.6. Magnesium was 1.3. Troponin was within normal limits x 3 sets now. RADIOGRAPHIC STUDIES: Chest x-ray was done. I have reviewed the chest x-ray. I have also reviewed the radiologist's interpretation and I do agree with it, no acute chest process. ASSESSMENT AND PLAN: We have an elderly lady who was initially admitted to the Intensive Care Unit, but thankfully did much better and is out. I have discussed with the attending. She is now out of the Intensive Care Unit so there is really no need for critical care consult. I have been consulted inadvertently initially, but as mentioned, she is out of the unit, so ____ she is doing better. I will put her on GI prophylaxis and flu and pneumonia vaccination will be per protocol and at this point, we will sign off the case. JOB# [id number] VAMSI/JENNA
[2017-01-08 07:52] LABS: Blood Urea Nitrogen 15 mg/dL (7-17); Calcium 8.4 mg/dL (8.4-10.2); Carbon Dioxide 26 mmol/L (22-30); Chloride 103.6 mmol/L (98-107); Glucose 229 mg/dL (65-100); Potassium 3.9 mmol/L (3.6-5.0); Sodium 141 mmol/L (137-145)
[2017-01-08] MEDS ORDERED: LEVEMIR SUB-Q SCH (08:00)
[2017-01-08 08:09] LABS: Anion Gap 15 mmol/L
--- NOTE | 2017-01-08 11:59 | Progress Note ---
Assessment and Plan Atrial fibrillation with RVR - s/p ablation 10 years ago. Patient has been treated with intravenous Cardizem and currently the Cardizem drip is off. She is on metoprolol converted to sinus rhythm. Patient is on oral anticoagulation. Rhythm strips are reviewed. Patient is noted to have intermittent atrial fibrillation with rapid ventricular response. Increase metoprolol to 50 mg twice a day and monitor closely. HTN HLP DM - Patient Problems (1) Atrial fibrillation with RVR Current Visit: Yes Status: Acute (2) Hypertension Current Visit: Yes Status: Acute Qualifiers: Hypertension type: H Subjective Date of service: 01/08/17 Interval history: Patient is feeling well today. No chest pain difficulty in breathing or palpitations. Objective Vital Signs Temp Pulse Pulse Resp BP Pulse Ox 01/08/17 10:00 95 01/08/17 08:00 98.1 F 140 H 18 114/72 95 01/08/17 05:15 97.6 F 107 H 18 118/68 99 01/08/17 00:32 97.6 F 74 18 130/57 93 01/07/17 22:00 75 18 01/07/17 20:56 72 01/07/17 20:35 96 01/07/17 20:34 75 122/58 01/07/17 19:48 98.4 F 75 20 122/58 95 01/07/17 13:00 97.9 F 72 18 134/60 100 01/07/17 12:20 75 16 127/46 99 01/07/17 12:00 97.6 F 69 17 126/59 98 - Physical Examination General: Appears Well HEENT: Positive: PERRL, Normocephaly, Mucus Membranes Moist Neck: Positive: neck supple, trachea midline Cardiac: Positive: Regular Rhythm Lungs: Positive: clear to auscultation Neuro: Positive: Grossly Intact, Cranial Nerve 2-12 Intact Abdomen: Positive: Unremarkable, Soft, Active Bowel Sounds. Negative: Tender Skin: Positive: Clear. Negative: Rash, Wound Musculoskeletal: No Fluid Collection, No Pain, Normal Range of Motion Extremities: Present: Other (no significant edema or calf tenderness.). Absent : edema - Labs and Meds Comprehensive Metabolic Panel 01/08/17 Range/Units 07:00 Sodium 141 D (137-145) mmol/L Potassium 3.9 (3.6-5.0) mmol/L Chloride 103.6 (98-107) mmol/L Carbon Dioxide 26 D (22-30) mmol/L BUN 15 (7-17) mg/dL Creatinine 0.6 L (0.7-1.2) mg/dL Glucose 229 H (65-100) mg/dL Calcium 8.4 (8.4-10.2) mg/dL - Imaging and Cardiology EKG: image reviewed Echo: report reviewed (02/2016 showed EF 55-60%, mild to moderate LVH, mild MR, trace TR, RVSP 24mmHg.)
[2017-01-08] MEDS: LOPRESSOR PO SCH ×3 (12:08→22:11)
[2017-01-08] MEDS: ELIQUIS PO SCH ×2 (12:10→22:05)
[2017-01-08] MEDS ORDERED: MAGNESIUM SULFATE 1 GM in NACL 0.9% 50 ML IV ONE (12:59)
--- NOTE | 2017-01-08 19:09 | Progress Note ---
Assessment and Plan Assessment and plan: 1. A. Flutter with RVR Status post ablation 10 years ago Admitted to ICU initially and started on Cardizem drip, then switched to po metoprolol; heart rate elevated this morning, so metoprolol dose increased; check electrolytes; continue to monitor on telemetry Anticoagulated with Elquis 2. Hypertension BP within normal limits while on Cardizem drip; then on on metoprolol Monitor and adjust regimen as needed 3. Uncontrolled diabetes Long-acting insulin along with SSI BS still elevated, so insulin dose increased Continue Accu-Cheks Assess insulin requirements 4. Hyponatremia Likely pseudohyponatremia due to hyperglycemia Resolved 5. Hypomagnesemia Repeat and recheck in a.m. 6. Hyperlipidemia Statin 7. DVT prophylaxis Anticoagulated with Eliquis History Interval history: HR in 130-140 this morning, feeling her heart racing Hospitalist Physical - Constitutional Vitals: Temp Pulse Resp BP Pulse Ox 98.1 F 132 H 20 107/67 96 01/08/17 16:00 01/08/17 16:00 01/08/17 16:00 01/08/17 16:00 01/08/17 16:00 General appearance: Present: no acute distress, well-nourished - EENT Eyes: Present: PERRL, EOM intact, scleral icterus. Absent: conjunctival injection - Neck Neck: Present: supple, normal ROM. Absent: masses or JVD - Respiratory Respiratory effort: normal Respiratory: bilateral: CTA, negative: rhonchi, wheezing - Cardiovascular Rhythm: irregularly irregular Heart Sounds: Present: S1 & S2. Absent: systolic murmur - Extremities Extremities: no ischemia - Abdominal General gastrointestinal: soft, non-tender, non-distended, normal bowel sounds - Psychiatric Psychiatric: cooperative - Neurologic Neurologic: CNII-XII intact, no focal deficits Results - Labs CBC & Chem 7: 01/06/17 14:25 01/08/17 07:00 Labs: Laboratory Last Values WBC 7.4 K/mm3 (4.5-11.0) 01/06/17 14:25 RBC 4.89 M/mm3 (3.65-5.03) 01/06/17 14:25 Hgb 14.1 gm/dl (10.1-14.3) 01/06/17 14:25 Hct 42.8 % (30.3-42.9) 01/06/17 14:25 MCV 88 fl (79-97) 01/06/17 14:25 MCH 29 pg (28-32) 01/06/17 14:25 MCHC 33 % (30-34) 01/06/17 14:25 RDW 14.8 % (13.2-15.2) 01/06/17 14:25 Plt Count 213 K/mm3 (140-440) 01/06/17 14:25 Lymph % (Auto) 22.7 % (13.4-35.0) 01/06/17 14:25 [place] % (Auto) 6.1 % (0.0-7.3) 01/06/17 14:25 Eos % (Auto) 0.6 % (0.0-4.3) 01/06/17 14:25 Baso % (Auto) 1.0 % (0.0-1.8) 01/06/17 14:25 Lymph # 1.7 K/mm3 (1.2-5.4) 01/06/17 14:25 [place] # 0.5 K/mm3 (0.0-0.8) 01/06/17 14:25 Eos # 0.0 K/mm3 (0.0-0.4) 01/06/17 14:25 Baso # 0.1 K/mm3 (0.0-0.1) 01/06/17 14:25 Seg Neutrophils % 69.6 % (40.0-70.0) 01/06/17 14:25 Seg Neutrophils # 5.2 K/mm3 (1.8-7.7) 01/06/17 14:25 PT 13.1 Sec. (12.2-14.9) 01/06/17 14:25 INR 0.95 (0.87-1.13) 01/06/17 14:25 APTT 28.4 Sec. (24.2-36.6) 01/06/17 14:25 VBG pH 7.352 (7.320-7.420) 01/06/17 15:31 Sodium 141 mmol/L (137-145) D 01/08/17 07:00 Potassium 3.9 mmol/L (3.6-5.0) 01/08/17 07:00 Chloride 103.6 mmol/L (98-107) 01/08/17 07:00 Carbon Dioxide 26 mmol/L (22-30) D 01/08/17 07:00 Anion Gap 15 mmol/L 01/08/17 07:00 BUN 15 mg/dL (7-17) 01/08/17 07:00 Creatinine 0.6 mg/dL (0.7-1.2) L 01/08/17 07:00 Estimated GFR > 60 ml/min 01/08/17 07:00 BUN/Creatinine Ratio 25.00 % 01/08/17 07:00 Glucose 229 mg/dL (65-100) H 01/08/17 07:00 POC Glucose 223 (70-105) H 01/08/17 06:28 Hemoglobin A1c 10.6 % (4-6) H 01/06/17 14:25 Calcium 8.4 mg/dL (8.4-10.2) 01/08/17 07:00 Phosphorus 2.90 mg/dL (2.5-4.5) 01/08/17 07:00 Magnesium 1.50 mg/dL (1.7-2.3) L 01/08/17 07:00 Troponin T < 0.010 ng/mL (0.00-0.029) 01/06/17 22:06
[2017-01-08] MEDS: ZOCOR PO SCH (22:06)
[2017-01-09] MEDS: NOVOLOG SUB-Q SCH ×5 (00:57→23:56)
[2017-01-09] MEDS ORDERED: MAGNESIUM SULFATE 3 GM in NACL 0.9% 100 ML IV ONE (09:00)
--- NOTE | 2017-01-09 10:37 | Progress Note ---
Assessment and Plan Assessment: Atrial fibrillation with RVR - s/p ablation 10 years ago HTN HLP DM Plan: Increase lopressor to 50mg PO TID. No indication for repeat echo at this time given recent echo 02/2016. Replete Mg. Repeat BMP and Mg in AM. Cont eliquis, 5mg PO BID. Assessment and plan reviewed with pt at bedside. The patient has been seen in conjunction with Dr. Ball who agrees with the assessment and plan of care. Subjective Date of service: 01/09/17 Principal diagnosis: AFib with RVR Interval history: Pt remains in AFib with variable ventricular response, RVR at times. BPs stable. Pt with no complaints. Objective Last Vital Signs Temp 97.6 F 01/09/17 09:30 Pulse 74 01/09/17 09:30 Resp 18 01/09/17 09:30 BP 130/59 01/09/17 09:30 Pulse Ox 99 01/09/17 09:30 - Physical Examination General: Appears Well HEENT: Positive: PERRL, Normocephaly, Mucus Membranes Moist Neck: Positive: neck supple, trachea midline Cardiac: Positive: irregularly irregular, S1/S2 Lungs: Positive: clear to auscultation Neuro: Positive: Grossly Intact, Cranial Nerve 2-12 Intact Abdomen: Positive: Unremarkable, Soft, Active Bowel Sounds. Negative: Tender Skin: Positive: Clear. Negative: Rash, Wound Musculoskeletal: No Fluid Collection, No Pain, Normal Range of Motion Extremities: Present: Other (no significant edema or calf tenderness.). Absent : edema - Imaging and Cardiology EKG: image reviewed Echo: report reviewed (02/2016 showed EF 55-60%, mild to moderate LVH, mild MR, trace TR, RVSP 24mmHg.)
--- NOTE | 2017-01-09 10:56 | Progress Note ---
<ASHLI SNYDER S - Last Filed: 01/09/17 16:17> Assessment and Plan - Patient Problems (1) Atrial fibrillation with RVR Status: Acute (2) Hypertension Status: Acute QualifierTitle: Hypertension type: H (3) Uncontrolled diabetes mellitus Status: Acute QualifierTitle: Diabetes mellitus type: type 1 Diabetes mellitus complication status: with hyperglycemia Diabetes mellitus complication detail : D Diabetic retinopathy severity: D Proliferative retinopathy type: P Diabetes mellitus macular edema: D Diabetes mellitus care home insulin use: D Laterality: L Chronic kidney disease stage: C Qualified Code(s): E10.65 - Type 1 diabetes mellitus with hyperglycemia Hospitalist Physical - Constitutional Vitals: Temp Pulse Resp BP Pulse Ox 97.6 F 71 18 126/59 96 01/09/17 13:44 01/09/17 13:44 01/09/17 13:44 01/09/17 13:44 01/09/17 13:44 Results - Labs CBC & Chem 7: 01/06/17 14:25 01/08/17 07:00 Labs: Laboratory Last Values WBC 7.4 K/mm3 (4.5-11.0) 01/06/17 14:25 RBC 4.89 M/mm3 (3.65-5.03) 01/06/17 14:25 Hgb 14.1 gm/dl (10.1-14.3) 01/06/17 14:25 Hct 42.8 % (30.3-42.9) 01/06/17 14:25 MCV 88 fl (79-97) 01/06/17 14:25 MCH 29 pg (28-32) 01/06/17 14:25 MCHC 33 % (30-34) 01/06/17 14:25 RDW 14.8 % (13.2-15.2) 01/06/17 14:25 Plt Count 213 K/mm3 (140-440) 01/06/17 14:25 Lymph % (Auto) 22.7 % (13.4-35.0) 01/06/17 14:25 [place] % (Auto) 6.1 % (0.0-7.3) 01/06/17 14:25 Eos % (Auto) 0.6 % (0.0-4.3) 01/06/17 14:25 Baso % (Auto) 1.0 % (0.0-1.8) 01/06/17 14:25 Lymph # 1.7 K/mm3 (1.2-5.4) 01/06/17 14:25 [place] # 0.5 K/mm3 (0.0-0.8) 01/06/17 14:25 Eos # 0.0 K/mm3 (0.0-0.4) 01/06/17 14:25 Baso # 0.1 K/mm3 (0.0-0.1) 01/06/17 14:25 Seg Neutrophils % 69.6 % (40.0-70.0) 01/06/17 14:25 Seg Neutrophils # 5.2 K/mm3 (1.8-7.7) 01/06/17 14:25 PT 13.1 Sec. (12.2-14.9) 01/06/17 14:25 INR 0.95 (0.87-1.13) 01/06/17 14:25 APTT 28.4 Sec. (24.2-36.6) 01/06/17 14:25 VBG pH 7.352 (7.320-7.420) 01/06/17 15:31 Sodium 141 mmol/L (137-145) D 01/08/17 07:00 Potassium 3.9 mmol/L (3.6-5.0) 01/08/17 07:00 Chloride 103.6 mmol/L (98-107) 01/08/17 07:00 Carbon Dioxide 26 mmol/L (22-30) D 01/08/17 07:00 Anion Gap 15 mmol/L 01/08/17 07:00 BUN 15 mg/dL (7-17) 01/08/17 07:00 Creatinine 0.6 mg/dL (0.7-1.2) L 01/08/17 07:00 Estimated GFR > 60 ml/min 01/08/17 07:00 BUN/Creatinine Ratio 25.00 % 01/08/17 07:00 Glucose 229 mg/dL (65-100) H 01/08/17 07:00 POC Glucose 189 (70-105) H 01/09/17 05:16 Hemoglobin A1c 10.6 % (4-6) H 01/06/17 14:25 Calcium 8.4 mg/dL (8.4-10.2) 01/08/17 07:00 Phosphorus 2.90 mg/dL (2.5-4.5) 01/08/17 07:00 Magnesium 1.50 mg/dL (1.7-2.3) L 01/09/17 06:29 Troponin T < 0.010 ng/mL (0.00-0.029) 01/06/17 22:06 <KARLA GARCIA - Last Filed: 01/15/17 18:04> Assessment and Plan Assessment and plan: Atrial Flutter with RVR Status post ablation 10 years ago Admitted to ICU initially and started on Cardizem drip, then switched to po metoprolol; heart rate still uncontrolled, so metoprolol dose increased On Elquis for anticoagulation. Hypertension BP improving Diabetes mellitus type II . Fingerstick glucose 4 times a day before meals and at bedtime Hyponatremia, Resolved Hypomagnesemia Hyperlipidemia. Cont statin DVT prophylaxis. Anticoagulated with Eliquis History Interval history: No chest pain, less shortness of breath Hospitalist Physical - Physical exam Narrative exam: Gen appearance: Not in acute distress HEENT: normocephalic, atraumatic Neck: supple, no JVD, Lungs: Clear to auscultation bilaterally, no crackles or wheezes Heart :S1 and S2 irregular, no murmurs, rubs or gallop Abdomen: Soft, Non tender, non distended, bowel sounds present Extremities :no edema, no clubbing or cyanosis Neuro: AAO x 3, no focal neurological signs - Constitutional Vitals: Temp Pulse Resp BP Pulse Ox 97.6 F 74 18 130/59 99 01/09/17 09:30 01/09/17 09:30 01/09/17 09:30 01/09/17 09:30 01/09/17 09:30 General appearance: Present: no acute distress, well-nourished Results - Labs CBC & Chem 7: 01/06/17 14:25 01/10/17 06:12 Labs: Laboratory Last Values WBC 7.4 K/mm3 (4.5-11.0) 01/06/17 14:25 RBC 4.89 M/mm3 (3.65-5.03) 01/06/17 14:25 Hgb 14.1 gm/dl (10.1-14.3) 01/06/17 14:25 Hct 42.8 % (30.3-42.9) 01/06/17 14:25 MCV 88 fl (79-97) 01/06/17 14:25 MCH 29 pg (28-32) 01/06/17 14:25 MCHC 33 % (30-34) 01/06/17 14:25 RDW 14.8 % (13.2-15.2) 01/06/17 14:25 Plt Count 213 K/mm3 (140-440) 01/06/17 14:25 Lymph % (Auto) 22.7 % (13.4-35.0) 01/06/17 14:25 [place] % (Auto) 6.1 % (0.0-7.3) 01/06/17 14:25 Eos % (Auto) 0.6 % (0.0-4.3) 01/06/17 14:25 Baso % (Auto) 1.0 % (0.0-1.8) 01/06/17 14:25 Lymph # 1.7 K/mm3 (1.2-5.4) 01/06/17 14:25 [place] # 0.5 K/mm3 (0.0-0.8) 01/06/17 14:25 Eos # 0.0 K/mm3 (0.0-0.4) 01/06/17 14:25 Baso # 0.1 K/mm3 (0.0-0.1) 01/06/17 14:25 Seg Neutrophils % 69.6 % (40.0-70.0) 01/06/17 14:25 Seg Neutrophils # 5.2 K/mm3 (1.8-7.7) 01/06/17 14:25 PT 13.1 Sec. (12.2-14.9) 01/06/17 14:25 INR 0.95 (0.87-1.13) 01/06/17 14:25 APTT 28.4 Sec. (24.2-36.6) 01/06/17 14:25 VBG pH 7.352 (7.320-7.420) 01/06/17 15:31 Sodium 141 mmol/L (137-145) D 01/08/17 07:00 Potassium 3.9 mmol/L (3.6-5.0) 01/08/17 07:00 Chloride 103.6 mmol/L (98-107) 01/08/17 07:00 Carbon Dioxide 26 mmol/L (22-30) D 01/08/17 07:00 Anion Gap 15 mmol/L 01/08/17 07:00 BUN 15 mg/dL (7-17) 01/08/17 07:00 Creatinine 0.6 mg/dL (0.7-1.2) L 01/08/17 07:00 Estimated GFR > 60 ml/min 01/08/17 07:00 BUN/Creatinine Ratio 25.00 % 01/08/17 07:00 Glucose 229 mg/dL (65-100) H 01/08/17 07:00 POC Glucose 189 (70-105) H 01/09/17 05:16 Hemoglobin A1c 10.6 % (4-6) H 01/06/17 14:25 Calcium 8.4 mg/dL (8.4-10.2) 01/08/17 07:00 Phosphorus 2.90 mg/dL (2.5-4.5) 01/08/17 07:00 Magnesium 1.50 mg/dL (1.7-2.3) L 01/09/17 06:29 Troponin T < 0.010 ng/mL (0.00-0.029) 01/06/17 22:06
[2017-01-09] MEDS: ELIQUIS PO SCH ×2 (13:32→22:32)
[2017-01-09] MEDS: LOPRESSOR PO SCH ×2 (13:32→22:32)
[2017-01-09] MEDS ORDERED: LOPRESSOR PO SCH (14:00)
[2017-01-09] MEDS: LEVEMIR SUB-Q SCH (14:51)
--- NOTE | 2017-01-09 16:36 | Progress Note ---
Assessment and Plan Patient alert, awake, no complaint of chest pain,shortness of breath or cough.O2 saturation 99% on room air. - Patient Problems (1) Atrial fibrillation with RVR Current Visit: Yes Status: Acute Plan to address problem: Heart rate under control. Patient is on Apixaban. Management as per cardiology. (2) Hypertension Current Visit: Yes Status: Acute Qualifiers: Hypertension type: H Plan to address problem: Blood pressure running normal. Management as per primary care. (3) Uncontrolled diabetes mellitus Current Visit: Yes Status: Acute Qualifiers: Diabetes mellitus type: type 1 Diabetes mellitus complication status: with hyperglycemia Diabetes mellitus complication detail: D Diabetic retinopathy severity: D Proliferative retinopathy type: P Diabetes mellitus macular edema: D Diabetes mellitus ekg/ecg technician insulin use: D Laterality: L Chronic kidney disease stage: C Qualified Code(s): E10.65 - Type 1 diabetes mellitus with hyperglycemia Plan to address problem: Blood sugur still running high. Patient is on S/Q novalog. Management as per primary care. (4) Shortness of breath Current Visit: Yes Status: Acute Plan to address problem: Patient has no complaint of shortness of breath at this time. O2 saturation 99% on room air. Patient anxious but no acute respiratory distress. Subjective Date of service: 01/09/17 Principal diagnosis: AFib with RVR Interval history: Patient alert, awake, no complaint of chest pain,shortness of breath or cough.O2 saturation 99% on room air. Objective Vital Signs - 12hr 01/09/17 01/09/17 01/09/17 09:30 13:32 13:44 Temperature 97.6 F 97.6 F Pulse Rate 74 75 71 Respiratory 18 18 Rate Blood Pressure 130/59 126/59 O2 Sat by Pulse 99 96 Oximetry Constitutional: no acute distress, alert Eyes: non-icteric ENT: oropharynx moist Neck: supple Ascultation: Bilateral: clear Cardiovascular: irregular rhythm Gastrointestinal: normoactive bowel sounds, soft, non-tender Extremities: no cyanosis, no edema Neurologic: normal mental status, non-focal exam, pupils equal and round, CN II- XII normal Psychiatric: anxious CBC and BMP: 01/06/17 14:25 01/08/17 07:00 ABG, PT/INR, D-dimer: PT/INR, D-dimer PT 13.1 Sec. (12.2-14.9) 01/06/17 14:25 INR 0.95 (0.87-1.13) 01/06/17 14:25 Abnormal lab findings: Abnormal Labs 01/06/17 01/07/17 01/07/17 18:54 00:41 05:33 Creatinine Glucose POC Glucose 193 H 180 H 335 H Magnesium 01/07/17 01/07/17 01/08/17 11:14 17:36 00:23 Creatinine Glucose POC Glucose 158 H 246 H 268 H Magnesium 01/08/17 01/08/17 01/08/17 06:28 07:00 12:16 Creatinine 0.6 L Glucose 229 H POC Glucose 223 H 335 H Magnesium 1.50 L 01/08/17 01/08/17 01/09/17 16:44 22:06 05:16 Creatinine Glucose POC Glucose 322 H 191 H 189 H Magnesium 01/09/17 06:29 Creatinine Glucose POC Glucose Magnesium 1.50 L Chest x-ray: report reviewed (No significant chest process constantino been reported.), image reviewed
[2017-01-09] MEDS: ZOCOR PO SCH (22:32)
[2017-01-10] MEDS: NOVOLOG SUB-Q SCH (06:17)
[2017-01-10 06:57] LABS: BUN/Creatinine Ratio 28.33; Blood Urea Nitrogen 17 mg/dL (7-17); Calcium 8.7 mg/dL (8.4-10.2); Carbon Dioxide 27 mmol/L (22-30); Glucose 166 mg/dL (65-100)
[2017-01-10 06:58] LABS: Anion Gap 14 mmol/L; Chloride 103.2 mmol/L (98-107); Potassium 4.2 mmol/L (3.6-5.0); Sodium 140 mmol/L (137-145)
[2017-01-10] MEDS: LOPRESSOR PO SCH (09:51)
[2017-01-10] MEDS: ELIQUIS PO SCH (09:53)
[2017-01-10] MEDS: LEVEMIR SUB-Q SCH (09:54)
--- NOTE | 2017-01-10 10:48 | Progress Note ---
Assessment and Plan Assessment: Atrial fibrillation with RVR - s/p ablation 10 years ago HTN HLP DM Hypomag - repleted. Plan: Increase lopressor to 100mg PO BID. No indication for repeat echo at this time given recent echo 02/2016. Cont eliquis, 5mg PO BID. Assessment and plan reviewed with pt at bedside. The patient has been seen in conjunction with Dr. Elsie Davila who agrees with the assessment and plan of care. Subjective Date of service: 01/10/17 Principal diagnosis: AFib with RVR Interval history: Pt was in AFib with CVR overnight, with RVR this AM. BPs stable. Pt with no complaints. Objective Last Vital Signs Temp 98.3 F 01/10/17 01:00 Pulse 130 H 01/10/17 10:00 Resp 20 01/10/17 08:04 BP 140/63 01/10/17 08:04 Pulse Ox 95 01/10/17 08:04 - Physical Examination General: Appears Well HEENT: Positive: PERRL, Normocephaly, Mucus Membranes Moist Neck: Positive: neck supple, trachea midline Cardiac: Positive: irregularly irregular, S1/S2, Tachycardia Lungs: Positive: clear to auscultation Neuro: Positive: Grossly Intact, Cranial Nerve 2-12 Intact Abdomen: Positive: Unremarkable, Soft, Active Bowel Sounds. Negative: Tender Skin: Positive: Clear. Negative: Rash, Wound Musculoskeletal: No Fluid Collection, No Pain, Normal Range of Motion Extremities: Present: Other (no significant edema or calf tenderness.). Absent : edema - Labs and Meds Comprehensive Metabolic Panel 01/10/17 Range/Units 06:12 Sodium 140 (137-145) mmol/L Potassium 4.2 (3.6-5.0) mmol/L Chloride 103.2 (98-107) mmol/L Carbon Dioxide 27 (22-30) mmol/L BUN 17 (7-17) mg/dL Creatinine 0.6 L (0.7-1.2) mg/dL Glucose 166 H (65-100) mg/dL Calcium 8.7 (8.4-10.2) mg/dL - Imaging and Cardiology EKG: image reviewed Echo: report reviewed (02/2016 showed EF 55-60%, mild to moderate LVH, mild MR, trace TR, RVSP 24mmHg.) - Telemetry EKG Rhythm: Atrial Fibrillation
--- NOTE | 2017-01-10 10:58 | Progress Note ---
Hospitalist Physical - Constitutional Vitals: Temp Pulse Resp BP Pulse Ox 98.3 F 130 H 20 140/63 95 01/10/17 01:00 01/10/17 10:00 01/10/17 08:04 01/10/17 08:04 01/10/17 08:04 General appearance: Present: no acute distress, well-nourished Results - Labs CBC & Chem 7: 01/06/17 14:25 01/10/17 06:12 Labs: Laboratory Last Values WBC 7.4 K/mm3 (4.5-11.0) 01/06/17 14:25 RBC 4.89 M/mm3 (3.65-5.03) 01/06/17 14:25 Hgb 14.1 gm/dl (10.1-14.3) 01/06/17 14:25 Hct 42.8 % (30.3-42.9) 01/06/17 14:25 MCV 88 fl (79-97) 01/06/17 14:25 MCH 29 pg (28-32) 01/06/17 14:25 MCHC 33 % (30-34) 01/06/17 14:25 RDW 14.8 % (13.2-15.2) 01/06/17 14:25 Plt Count 213 K/mm3 (140-440) 01/06/17 14:25 Lymph % (Auto) 22.7 % (13.4-35.0) 01/06/17 14:25 [place] % (Auto) 6.1 % (0.0-7.3) 01/06/17 14:25 Eos % (Auto) 0.6 % (0.0-4.3) 01/06/17 14:25 Baso % (Auto) 1.0 % (0.0-1.8) 01/06/17 14:25 Lymph # 1.7 K/mm3 (1.2-5.4) 01/06/17 14:25 [place] # 0.5 K/mm3 (0.0-0.8) 01/06/17 14:25 Eos # 0.0 K/mm3 (0.0-0.4) 01/06/17 14:25 Baso # 0.1 K/mm3 (0.0-0.1) 01/06/17 14:25 Seg Neutrophils % 69.6 % (40.0-70.0) 01/06/17 14:25 Seg Neutrophils # 5.2 K/mm3 (1.8-7.7) 01/06/17 14:25 PT 13.1 Sec. (12.2-14.9) 01/06/17 14:25 INR 0.95 (0.87-1.13) 01/06/17 14:25 APTT 28.4 Sec. (24.2-36.6) 01/06/17 14:25 VBG pH 7.352 (7.320-7.420) 01/06/17 15:31 Sodium 140 mmol/L (137-145) 01/10/17 06:12 Potassium 4.2 mmol/L (3.6-5.0) 01/10/17 06:12 Chloride 103.2 mmol/L (98-107) 01/10/17 06:12 Carbon Dioxide 27 mmol/L (22-30) 01/10/17 06:12 Anion Gap 14 mmol/L 01/10/17 06:12 BUN 17 mg/dL (7-17) 01/10/17 06:12 Creatinine 0.6 mg/dL (0.7-1.2) L 01/10/17 06:12 Estimated GFR > 60 ml/min 01/10/17 06:12 BUN/Creatinine Ratio 28.33 % 01/10/17 06:12 Glucose 166 mg/dL (65-100) H 01/10/17 06:12 POC Glucose 125 (70-105) H 01/10/17 08:04 Hemoglobin A1c 10.6 % (4-6) H 01/06/17 14:25 Calcium 8.7 mg/dL (8.4-10.2) 01/10/17 06:12 Phosphorus 2.90 mg/dL (2.5-4.5) 01/08/17 07:00 Magnesium 1.70 mg/dL (1.7-2.3) 01/10/17 06:12 Troponin T < 0.010 ng/mL (0.00-0.029) 01/06/17 22:06
[2017-01-10] MEDS ORDERED: LOPRESSOR PO ONE (12:00)
--- NOTE | 2017-01-10 12:54 | Progress Note ---
Assessment and Plan Patient alert, awake, no complaint of chest pain,shortness of breath or cough.O2 saturation 95% on room air. - Patient Problems (1) Atrial fibrillation with RVR Current Visit: Yes Status: Acute Plan to address problem: Heart rate under control. Patient is on Apixaban. Management as per cardiology. (2) Hypertension Current Visit: Yes Status: Acute Qualifiers: Hypertension type: H Plan to address problem: Blood pressure running normal. Management as per primary care. (3) Uncontrolled diabetes mellitus Current Visit: Yes Status: Acute Qualifiers: Diabetes mellitus type: type 1 Diabetes mellitus complication status: with hyperglycemia Diabetes mellitus complication detail: D Diabetic retinopathy severity: D Proliferative retinopathy type: P Diabetes mellitus macular edema: D Diabetes mellitus terminal carman insulin use: D Laterality: L Chronic kidney disease stage: C Qualified Code(s): E10.65 - Type 1 diabetes mellitus with hyperglycemia Plan to address problem: Blood sugur still running high. Patient is on S/Q novalog. Management as per primary care. (4) Shortness of breath Current Visit: Yes Status: Acute Plan to address problem: Patient has no complaint of shortness of breath at this time. O2 saturation 95% on room air. Patient anxious but no acute respiratory distress. Subjective Date of service: 01/10/17 Principal diagnosis: AFib with RVR Interval history: Patient alert, awake, no complaint of chest pain,shortness of breath or cough.O2 saturation 95% on room air. Objective Vital Signs - 12hr 01/10/17 01/10/17 01/10/17 01:00 08:04 09:51 Temperature 98.3 F Pulse Rate 67 60 128 H Respiratory 20 20 Rate Blood Pressure 126/60 140/63 O2 Sat by Pulse 100 95 Oximetry 01/10/17 10:00 Temperature Pulse Rate 130 H Respiratory Rate Blood Pressure O2 Sat by Pulse Oximetry Constitutional: no acute distress, alert Eyes: non-icteric ENT: oropharynx moist Neck: supple Ascultation: Bilateral: clear Cardiovascular: irregular rhythm Gastrointestinal: normoactive bowel sounds, soft, non-tender Extremities: no cyanosis, no edema Neurologic: normal mental status, non-focal exam, pupils equal and round, CN II- XII normal Psychiatric: anxious CBC and BMP: 01/06/17 14:25 01/10/17 06:12 ABG, PT/INR, D-dimer: PT/INR, D-dimer PT 13.1 Sec. (12.2-14.9) 01/06/17 14:25 INR 0.95 (0.87-1.13) 01/06/17 14:25 Abnormal lab findings: Abnormal Labs 01/06/17 01/07/17 01/07/17 18:54 00:41 05:33 Creatinine Glucose POC Glucose 193 H 180 H 335 H Magnesium 01/07/17 01/07/17 01/08/17 11:14 17:36 00:23 Creatinine Glucose POC Glucose 158 H 246 H 268 H Magnesium 01/08/17 01/08/17 01/08/17 06:28 07:00 12:16 Creatinine 0.6 L Glucose 229 H POC Glucose 223 H 335 H Magnesium 1.50 L 01/08/17 01/08/17 01/09/17 16:44 22:06 05:16 Creatinine Glucose POC Glucose 322 H 191 H 189 H Magnesium 01/09/17 01/09/17 01/09/17 06:29 14:54 16:46 Creatinine Glucose POC Glucose 338 H 271 H Magnesium 1.50 L 01/09/17 01/10/17 01/10/17 22:14 06:11 06:12 Creatinine 0.6 L Glucose 166 H POC Glucose 132 H 176 H Magnesium 01/10/17 08:04 Creatinine Glucose POC Glucose 125 H Magnesium
--- NOTE | 2017-01-10 13:00 | Discharge Summary ---
Providers - Providers Date of Admission: 01/06/17 15:47 Date of discharge: 01/10/17 Attending physician: KARLA GARCIA 01/07/17 00:41 Consult to Physician [CONS] Routine Consulting Provider: STACIE NEW Reason For Exam: ICU Admission Place consult to:: answering service Notified:: area secretary to call Primary care physician: UMBERTO LANGLEY Hospitalization Condition: Fair Hospital course: Patient is 76 yo with hypertension, diabetes , atrial fibrillation. She went to see sign language instructor in office, was found to have rapid atrial fibrillation. She was therefore sent to Emergency Department for admission. In ED, she was started on cardizem drip and admitted to ICU. Heart rate improved and she was transitioned to oral medications and transferred to Telemetry. With further titration of oral meds, she became rate controlled and was discharged home on . Total time spent on discharge, 32 mins. Disposition: DC- TO HOME OR SELFCARE - Discharge Diagnoses (1) Atrial fibrillation with RVR Status: Acute (2) Hyperglycemia Status: Acute (3) Hypertension Status: Acute Qualifiers: Hypertension type: H (4) Uncontrolled diabetes mellitus Status: Acute Qualifiers: Diabetes mellitus type: type 2 Diabetes mellitus complication status: with hyperglycemia Diabetes mellitus complication detail: D Diabetic retinopathy severity: D Proliferative retinopathy type: P Diabetes mellitus macular edema: D Diabetes mellitus rodent exterminator insulin use: D Laterality: L Chronic kidney disease stage: C (5) Obesity (BMI 30.0-34.9) Status: Acute Core Measure Documentation - Palliative Care Palliative Care/ Comfort Measures: Not Applicable - Core Measures Any of the following diagnoses?: none Exam - Physical Exam Narrative exam: Gen appearance: Not in acute distress HEENT: normocephalic, atraumatic Neck: supple, no JVD, Lungs: Clear to auscultation bilaterally, no crackles or wheezes Heart :S1 and S2 irregular, no murmurs, rubs or gallop Abdomen: Soft, Non tender, non distended, bowel sounds present Extremities :no edema, no clubbing or cyanosis Neuro: AAO x 3, no focal neurological signs - Constitutional Vitals: Temp Pulse Resp BP Pulse Ox 98.3 F 130 H 20 140/63 95 01/10/17 01:00 01/10/17 10:00 01/10/17 08:04 01/10/17 08:04 01/10/17 08:04 Plan Activity: no restrictions Diet: low fat, low cholesterol, low salt, diabetic Additional Instructions: 1.Follow up with PCP in 1 week. 2.Follow up with [facility] [employer] in 1 week Follow up with: UMBERTO LANGLEY MD [Primary Care Provider] - 7 Days Prescriptions: Apixaban [Eliquis] 5 mg PO Q12HR #60 tablet Famotidine [Pepcid] 20 mg PO BID #60 tablet Insulin Detemir [Levemir] 12 units SUB-Q QAMDIAB #1 vial Metoprolol [Lopressor TAB] 50 mg PO TID #90 tablet
--- NOTE | 2017-01-10 13:28 | Event Note ---
Date: 01/10/17 Pt converted to SR, HR in 60s, BPs stable. May discharge home from cardiology standpoint. On discharge, recommend continuation of Lopressor, 50mg PO TID, and eliquis, 5mg PO BID. Follow up in our [place] office with Dr. Campos on 01/26/2017 @ 11:00AM. Darrel VELASQUEZ NP / DR. MARISCAL
[2017-01-10 13:30] VITALS: BP 131/62
[2017-01-10] MEDS ORDERED: LOPRESSOR PO SCH (22:00)
== END 2017-01-10 20:56 | disposition home or self-care (01) | DRG 638 ==
LOC: ED 14:11 → CC1 15:47 → 4A 01-07 13:02
PROVIDERS: ADMIT Internal Medicine; ATTEND Internal Medicine
DX: E10.65 Type 1 diabetes mellitus with hyperglycemia (principal); E87.1 Hypo-osmolality and hyponatremia; I48.91 Unspecified atrial fibrillation; I10 Essential (primary) hypertension; E78.5 Hyperlipidemia, unspecified; E83.42 Hypomagnesemia; M19.90 Unspecified osteoarthritis, unspecified site; M54.9 Dorsalgia, unspecified; G89.29 Other chronic pain; Z90.49 Acquired absence of other specified parts of digestive tract
CPT/HCPCS: 36415; 71010; 80048; 82805; 82962; 83036; 83735; 84100; 84484; 85025; 85610; 85730; 93005; 93010; 96374; 96375; J1815; J1818; J3475; J7030